=== PATIENT | male | born 1950 | race Caucasian/White ===

== ENCOUNTER 2025-01-16 13:26 | Outpatient (CLI) | payer OTHER, SELFPAY | END 2025-01-16 13:27 | disposition home or self-care (01) | LOC: RAD 13:33 | PROVIDERS: PCP Physician Assistant; Visit Provider Chiropractor | DX: I25.10 Atherosclerotic heart disease of native coronary artery without angina pectoris (principal) | CPT/HCPCS: 93306 ==